=== PATIENT | female | born 1955 | race Caucasian/White ===

== ENCOUNTER 2022-11-20 14:25 | Emergency (ER) | payer MEDICARE, OTHER ==
[~2022-11-20] VITALS: Ht 167.6 cm; Wt 61.8 kg
[2022-11-20] MEDS ORDERED: IOHEXOL 350 MG/ML 100 ML VIAL ONE (15:27)
[2022-11-20] MEDS ORDERED: SODIUM CHLORIDE 0.9% 100 ML ONE (15:27)
[2022-11-20 15:30] LABS: BASOPHILS % (AUTO) 0.6 % (0.0-2.0); EOSINOPHILS % (AUTO) 1.6 % (1.0-6.0); HEMATOCRIT 40.1 % (36-46); HEMOGLOBIN 13.1 g/dL (12.0-16.0); LYMPHOCYTES # (AUTO) 1.5 K/uL (1.0-4.8); LYMPHOCYTES % (AUTO) 21.7 % (22.0-44.0); MEAN CORPUSCULAR HEMOGLOBIN 28.9 pg (26.0-34.0); MEAN CORPUSCULAR HGB CONC 32.6 G/dL (31.0-37.0); MEAN CORPUSCULAR VOLUME 89 fL (80-100); MONOCYTES # (AUTO) 0.5 K/uL (0.1-1.0); MONOCYTES % (AUTO) 6.8 % (2.0-9.0); NEUTROPHILS # (AUTO) 4.8 K/uL (1.8-7.7); NEUTROPHILS % (AUTO) 69.3 % (40.0-70.0); PLATELET COUNT (AUTO) 222 K/uL (150-450); RED BLOOD CELL COUNT(AUTO) 4.54 MIL/uL (4.00-5.20); RED CELL DISTRIBUTION WIDTH 14.6 % (11.5-14.5)
[2022-11-20 15:40] LABS: ANION GAP 7 mmol/L (8-16); CALCIUM, TOTAL 8.8 mg/dL (8.8-10.5); CARBON DIOXIDE 26 mmol/L (22-29); CHLORIDE 105 mmol/L (98-107); GLOMERULAR FILTR. RATE CALC > 60 mL/min (>60); GLUCOSE,RANDOM 89 mg/dL (70-110); POTASSIUM 3.7 mmol/L (3.5-5.1); SODIUM SERUM 138 mmol/L (136-145)
[2022-11-20 15:47] LABS: ALANINE AMINOTRANSFERASE 16 U/L (12-78); ALBUMIN 3.2 g/dL (3.4-5.0); ALKALINE PHOSPHATASE 121 U/L (46-116); ASPARTATE AMINOTRANSFERASE 22 U/L (15-37); BILIRUBIN,TOTAL 0.6 mg/dL (0.1-1.0); LIPASE 47 U/L (73-393); TOTAL PROTEIN, SERUM 6.7 g/dL (6.4-8.2)
[2022-11-20 17:12] LABS: APPEARANCE,URINE CLEAR (CLEAR); BILIRUBIN,URINE NEGATIVE (NEGATIVE); GLUCOSE, URINE (UA) NEGATIVE (NEGATIVE); KETONES,URINE NEGATIVE (NEGATIVE); LEUKOCYTE ESTERASE ,URINE MODERATE (NEGATIVE); NITRATE,URINE NEGATIVE (NEGATIVE); OCCULT BLOOD,URINE NEGATIVE (NEGATIVE); PH,URINE 6.5 (5.0-8.0); PROTEIN,URINE TRACE mg/dL (NEGATIVE); UROBILINOGEN,URINE <=1.0 mg/dL (<=1.0)
[2022-11-20 17:14] LABS: SPECIFIC GRAVITIY, URINE 1.015 (1.003-1.030)
[2022-11-20 17:21] LABS: BACTERIA,URINE Few /HPF (None Seen); RBC,URINE 0-2 /HPF (0-2); SQUAMOUS EPITHELIAL CELL,UR Moderate /LPF (None Seen)
[2022-11-20] MEDS ORDERED: NITROFURANTOIN MONOHYD/M-CRYST 100 MG CAPSULE [MACROBID] PO ONE (17:45)
[2022-11-20] MEDS ORDERED: NITR-75 PO (18:26)
[2022-11-20 19:30] VITALS: BP 124/77; PULSE 74; RESP 16; TEMP 98.3
== END 2022-11-20 19:49 | disposition home or self-care (01) ==
LOC: EMS 14:25
DX: N39.0 Urinary tract infection, site not specified (principal); R10.9 Unspecified abdominal pain; G89.29 Other chronic pain; M54.9 Dorsalgia, unspecified
CPT/HCPCS: 99285; 74177; 80053; 81001; 83690; 84484; 85025; 36415; 87086; 87186; 93005; Q9967; J7050

== ENCOUNTER 2023-01-16 12:15 | Inpatient (IN) | payer MEDICARE, OTHER ==
[~2023-01-16] VITALS: Ht 175.3 cm; Wt 63.6 kg
[~2023-01-16 12:15] MED LIST: NITR-75 PO
[2023-01-16] MEDS ORDERED: SODIUM CHLORIDE 0.9% 1,000 ML IV ONE ×2 (12:30→15:00)
[2023-01-16] MEDS ORDERED: 0.9% SODIUM CHLORIDE 10 ML SYRINGE IVP PRN (12:30)
[2023-01-16 13:12] LABS: COVID AG,FIA SOURCE NASOPHARYNGEAL
[2023-01-16 13:16] LABS: BASOPHILS % (AUTO) 0.7 % (0.0-2.0); EOSINOPHILS % (AUTO) 1.4 % (1.0-6.0); HEMOGLOBIN 13.3 g/dL (12.0-16.0); LYMPHOCYTES # (AUTO) 0.9 K/uL (1.0-4.8); LYMPHOCYTES % (AUTO) 13.7 % (22.0-44.0); MEAN CORPUSCULAR HEMOGLOBIN 29.5 pg (26.0-34.0); MEAN CORPUSCULAR HGB CONC 32.5 G/dL (31.0-37.0); MEAN CORPUSCULAR VOLUME 91 fL (80-100); MONOCYTES # (AUTO) 0.3 K/uL (0.1-1.0); MONOCYTES % (AUTO) 5.3 % (2.0-9.0); NEUTROPHILS # (AUTO) 5.1 K/uL (1.8-7.7); NEUTROPHILS % (AUTO) 78.9 % (40.0-70.0); PLATELET COUNT (AUTO) 293 K/uL (150-450); RED BLOOD CELL COUNT(AUTO) 4.52 MIL/uL (4.00-5.20); RED CELL DISTRIBUTION WIDTH 14.9 % (11.5-14.5); WHITE BLOOD COUNT (AUTO) 6.4 K/uL (4.5-11.0)
[2023-01-16 13:32] LABS: INR 1.7 (0.9-1.1); PROTHROMBIN TIME 17.1 SEC (9.4-11.6)
[2023-01-16 13:33] LABS: ANION GAP 8 mmol/L (8-16); B-TYPE NATRIURETIC PEPTIDE < 5 pg/mL (0-100); CALCIUM, TOTAL 8.8 mg/dL (8.8-10.5); CARBON DIOXIDE 27 mmol/L (22-29); CHLORIDE 104 mmol/L (98-107); CREATININE 0.75 mg/dL (0.60-1.30); GLOMERULAR FILTR. RATE CALC > 60 mL/min (>60); GLUCOSE,RANDOM 101 mg/dL (70-110); POTASSIUM 3.6 mmol/L (3.5-5.1); SODIUM SERUM 139 mmol/L (136-145); UREA NITROGEN, BLOOD 18 mg/dL (7-18)
[2023-01-16 13:34] LABS: LACTIC ACID 1.2 mmol/L (0.4-2.0)
[2023-01-16 13:35] LABS: TROPONIN I-HIGH SENSITIVITY 16 ng/L (<51)
[2023-01-16 13:37] LABS: SARS-COV2 (COVID) ANTIGEN,FIA Negative (Negative)
[2023-01-16 13:38] LABS: INFLUENZA TYPE A NEGATIVE FOR TYPE A (NEGATIVE); INFLUENZA TYPE B NEGATIVE FOR TYPE B (NEGATIVE)
[2023-01-16 13:56] LABS: ALANINE AMINOTRANSFERASE 12 U/L (12-78); ALBUMIN 3.7 g/dL (3.4-5.0); ALKALINE PHOSPHATASE 113 U/L (46-116); ASPARTATE AMINOTRANSFERASE 19 U/L (15-37); BILIRUBIN,TOTAL 0.5 mg/dL (0.1-1.0); CREATINE KINASE, TOTAL ONLY 95 U/L (26-192); PHOSPHORUS 3.9 mg/dL (2.5-4.9); TOTAL PROTEIN, SERUM 7.1 g/dL (6.4-8.2)
[2023-01-16] MEDS ORDERED: MAGNESIUM HYDROXIDE SUSPENSION 30 ML UDCUP PO PRN (15:00)
[2023-01-16] MEDS ORDERED: MORPHINE SULFATE 2 MG/ML SYRINGE IVP PRN (15:00)
[2023-01-16] MEDS ORDERED: ONDANSETRON HCL 4 MG/2 ML VIAL IVP PRN (15:00)
[2023-01-16] MEDS ORDERED: ACETAMINOPHEN 325 MG TABLET PO PRN (15:00)
[2023-01-16] MEDS ORDERED: BISACODYL 10 MG RECTAL RECTAL SUPPOSITORY PR PRN (15:00)
[2023-01-16] MEDS: HEPARIN SODIUM,PORCINE 5,000 UNITS/ML VIAL SQ SCH (18:00)
[2023-01-16] MEDS: DOCUSATE SODIUM 100 MG CAPSULE PO SCH (20:18)
[2023-01-17 01:01] LABS: APPEARANCE,URINE CLEAR (CLEAR); BILIRUBIN,URINE NEGATIVE (NEGATIVE); COLOR,URINE LIGHT YELLOW (YELLOW); GLUCOSE, URINE (UA) NEGATIVE (NEGATIVE); KETONES,URINE NEGATIVE (NEGATIVE); LEUKOCYTE ESTERASE ,URINE SMALL (NEGATIVE); NITRATE,URINE NEGATIVE (NEGATIVE); OCCULT BLOOD,URINE NEGATIVE (NEGATIVE); PH,URINE 6.5 (5.0-8.0); PROTEIN,URINE NEGATIVE (NEGATIVE); SPECIFIC GRAVITIY, URINE 1.016 (1.003-1.030); UROBILINOGEN,URINE <=1.0 mg/dL (<=1.0)
[2023-01-17 01:08] LABS: BACTERIA,URINE Few /HPF (None Seen); RBC,URINE 0-2 /HPF (0-2)
[2023-01-17 02:20] VITALS: BP 143/75; PULSE 75; RESP 20; TEMP 98.6
[2023-01-17] MEDS: HYDROCODONE/ACETAMINOPHEN 5-325 MG TABLET PO PRN ×3 (02:27→20:30)
[2023-01-17] MEDS: ZOLPIDEM TARTRATE 5 MG TABLET PO PRN ×2 (02:27→20:30)
[2023-01-17 05:30] VITALS: BP 135/77; PULSE 69; RESP 20; TEMP 97.7
[2023-01-17 06:48] LABS: BASOPHILS % (AUTO) 0.9 % (0.0-2.0); EOSINOPHILS % (AUTO) 2.5 % (1.0-6.0); HEMATOCRIT 37.8 % (36-46); HEMOGLOBIN 12.5 g/dL (12.0-16.0); LYMPHOCYTES # (AUTO) 1.9 K/uL (1.0-4.8); LYMPHOCYTES % (AUTO) 34.6 % (22.0-44.0); MEAN CORPUSCULAR HEMOGLOBIN 30.2 pg (26.0-34.0); MEAN CORPUSCULAR HGB CONC 33.2 G/dL (31.0-37.0); MEAN CORPUSCULAR VOLUME 91 fL (80-100); MONOCYTES # (AUTO) 0.4 K/uL (0.1-1.0); MONOCYTES % (AUTO) 7.9 % (2.0-9.0); NEUTROPHILS % (AUTO) 54.1 % (40.0-70.0); PLATELET COUNT (AUTO) 229 K/uL (150-450); RED BLOOD CELL COUNT(AUTO) 4.15 MIL/uL (4.00-5.20); RED CELL DISTRIBUTION WIDTH 14.5 % (11.5-14.5); WHITE BLOOD COUNT (AUTO) 5.5 K/uL (4.5-11.0)
[2023-01-17 07:08] LABS: ANION GAP 9 mmol/L (8-16); CALCIUM, TOTAL 8.3 mg/dL (8.8-10.5); CARBON DIOXIDE 24 mmol/L (22-29); CHLORIDE 105 mmol/L (98-107); CREATININE 0.47 mg/dL (0.60-1.30); GLOMERULAR FILTR. RATE CALC > 60 mL/min (>60); GLUCOSE,RANDOM 70 mg/dL (70-110); POTASSIUM 3.6 mmol/L (3.5-5.1); SODIUM SERUM 138 mmol/L (136-145); UREA NITROGEN, BLOOD 11 mg/dL (7-18)
[2023-01-17] MEDS: HEPARIN SODIUM,PORCINE 5,000 UNITS/ML VIAL SQ SCH ×3 (08:19→15:29)
[2023-01-17] MEDS: PANTOPRAZOLE SODIUM 40 MG DR TABLET PO SCH (08:21)
[2023-01-17] MEDS: DOCUSATE SODIUM 100 MG CAPSULE PO SCH ×2 (08:21→20:27)
[2023-01-17 08:42] VITALS: BP 139/71; PULSE 72; RESP 20; TEMP 98
[2023-01-17 12:50] VITALS: BP 148/74; PULSE 78; RESP 18; TEMP 98
[2023-01-17 16:17] VITALS: BP 141/70; PULSE 72; RESP 19; TEMP 98.4
[2023-01-17 20:45] VITALS: BP 129/71; PULSE 70; RESP 18; TEMP 98.1
[2023-01-18] MEDS: HEPARIN SODIUM,PORCINE 5,000 UNITS/ML VIAL SQ SCH ×2 (00:08→08:15)
[2023-01-18 00:22] VITALS: BP 131/74; PULSE 70; RESP 17; TEMP 97.9
[2023-01-18 04:49] VITALS: BP 137/77; PULSE 66; RESP 18; TEMP 98
[2023-01-18] MEDS ORDERED: LEVOTHYROXINE SODIUM 125 MCG TABLET PO SCH (06:30)
[2023-01-18 06:46] LABS: EOSINOPHILS % (AUTO) 2.8 % (1.0-6.0); HEMOGLOBIN 12.8 g/dL (12.0-16.0); LYMPHOCYTES % (AUTO) 41.3 % (22.0-44.0); MEAN CORPUSCULAR HEMOGLOBIN 30.4 pg (26.0-34.0); MEAN CORPUSCULAR HGB CONC 33.8 G/dL (31.0-37.0); MEAN CORPUSCULAR VOLUME 90 fL (80-100); MONOCYTES # (AUTO) 0.4 K/uL (0.1-1.0); MONOCYTES % (AUTO) 8.5 % (2.0-9.0); NEUTROPHILS # (AUTO) 2.2 K/uL (1.8-7.7); NEUTROPHILS % (AUTO) 46.4 % (40.0-70.0); PLATELET COUNT (AUTO) 252 K/uL (150-450); RED BLOOD CELL COUNT(AUTO) 4.22 MIL/uL (4.00-5.20); RED CELL DISTRIBUTION WIDTH 14.5 % (11.5-14.5); WHITE BLOOD COUNT (AUTO) 4.7 K/uL (4.5-11.0)
[2023-01-18 06:55] LABS: ANION GAP 8 mmol/L (8-16); CALCIUM, TOTAL 8.3 mg/dL (8.8-10.5); CARBON DIOXIDE 26 mmol/L (22-29); CHLORIDE 105 mmol/L (98-107); CREATININE 0.49 mg/dL (0.60-1.30); GLOMERULAR FILTR. RATE CALC > 60 mL/min (>60); GLUCOSE,RANDOM 88 mg/dL (70-110); POTASSIUM 3.6 mmol/L (3.5-5.1); SODIUM SERUM 139 mmol/L (136-145); UREA NITROGEN, BLOOD 12 mg/dL (7-18)
[2023-01-18 08:08] VITALS: BP 158/73; PULSE 70; RESP 19; TEMP 98.2
[2023-01-18] MEDS: DOCUSATE SODIUM 100 MG CAPSULE PO SCH (08:14)
[2023-01-18] MEDS: PANTOPRAZOLE SODIUM 40 MG DR TABLET PO SCH (08:16)
[2023-01-18] MEDS ORDERED: LEVO-72 PO (11:30)
[2023-01-18] MEDS ORDERED: LEVO125 PO (11:30)
[2023-01-18 12:28] VITALS: BP 157/77; PULSE 74; PULSE 91; RESP 19; TEMP 98.2
== END 2023-01-18 15:35 | disposition home or self-care (01) | DRG 74 ==
LOC: EMS 12:18 → 5S 23:00
PROVIDERS: ADMIT Internal Medicine; ATTEND Internal Medicine
DX: G90.9 Disorder of the autonomic nervous system, unspecified (principal); N39.0 Urinary tract infection, site not specified; E86.0 Dehydration; I95.1 Orthostatic hypotension; E78.5 Hyperlipidemia, unspecified; F41.9 Anxiety disorder, unspecified; E78.00 Pure hypercholesterolemia, unspecified; F17.210 Nicotine dependence, cigarettes, uncomplicated; F32.A Depression, unspecified; G89.29 Other chronic pain; M54.9 Dorsalgia, unspecified; Z20.822 Contact with and (suspected) exposure to COVID-19; K59.00 Constipation, unspecified; Z87.440 Personal history of urinary (tract) infections; Z88.0 Allergy status to penicillin; Z93.3 Colostomy status
CPT/HCPCS: 51701; 71045; 80048; 80053; 81001; 82550; 83605; 83735; 83880; 84100; 84145; 84484; 85025; 85610; 87040; 87086; 87186; 87804; 93005; 93880; 97163; 99291; J1644; J7030; 36415-L1; 36415-TC

== ENCOUNTER 2024-04-23 18:30 | Emergency (ER) | payer MEDICARE, OTHER ==
[~2024-04-23] VITALS: Ht 172.7 cm; Wt 75.5 kg
[~2024-04-23 18:30] MED LIST changes: +LEVO-72 PO; +LEVO125 PO; -NITR-75 PO
[2024-04-23 18:40] VITALS: TEMP 98.4
[2024-04-23] MEDS ORDERED: TRAZ-252 PO (18:45)
[2024-04-23] MEDS ORDERED: VENL-67 PO (18:45)
[2024-04-23] MEDS ORDERED: METO50 PO (18:45)
[2024-04-23] MEDS ORDERED: RIVA20TA PO (18:45)
[2024-04-23] MEDS ORDERED: EZET10TA57 PO (18:45)
[2024-04-23] MEDS ORDERED: ATOR20TA PO (18:45)
[2024-04-23] MEDS ORDERED: LOSA-382 PO (18:45)
[2024-04-23 19:27] LABS: BASOPHILS % (AUTO) 0.7 % (0.0-2.0); EOSINOPHILS % (AUTO) 0.7 % (1.0-6.0); HEMATOCRIT 43.3 % (36-46); HEMOGLOBIN 14.3 g/dL (12.0-16.0); LYMPHOCYTES # (AUTO) 1.8 K/uL (1.0-4.8); LYMPHOCYTES % (AUTO) 29.6 % (22.0-44.0); MEAN CORPUSCULAR HEMOGLOBIN 30.8 pg (26.0-34.0); MEAN CORPUSCULAR HGB CONC 33.1 G/dL (31.0-37.0); MEAN CORPUSCULAR VOLUME 93 fL (80-100); MONOCYTES # (AUTO) 0.4 K/uL (0.1-1.0); NEUTROPHILS # (AUTO) 3.7 K/uL (1.8-7.7); PLATELET COUNT (AUTO) 239 K/uL (150-450); RED BLOOD CELL COUNT(AUTO) 4.65 MIL/uL (4.00-5.20); RED CELL DISTRIBUTION WIDTH 14.2 % (11.5-14.5); WHITE BLOOD COUNT (AUTO) 5.9 K/uL (4.5-11.0)
[2024-04-23 19:55] LABS: CARBON DIOXIDE 27 mmol/L (22-29); CHLORIDE 102 mmol/L (98-107); POTASSIUM 4.2 mmol/L (3.5-5.1); SODIUM SERUM 136 mmol/L (136-145)
[2024-04-23 19:56] LABS: ANION GAP 7 mmol/L (8-16); CALCIUM, TOTAL 8.7 mg/dL (8.8-10.5); CREATININE 0.87 mg/dL (0.60-1.30); GLOMERULAR FILTR. RATE CALC > 60 mL/min (>60); GLUCOSE,RANDOM 89 mg/dL (70-110); UREA NITROGEN, BLOOD 14 mg/dL (7-18)
[2024-04-23 21:00] VITALS: BP 133/87; PULSE 63; RESP 16; O2SAT 98
[2024-04-23] MEDS: TraZODone HCL 50 MG TABLET PO ONE (21:05)
== END 2024-04-23 21:15 | disposition home or self-care (01) ==
LOC: EMS 18:30
DX: G47.9 Sleep disorder, unspecified (principal); R63.8 Other symptoms and signs concerning food and fluid intake; R53.1 Weakness; F41.9 Anxiety disorder, unspecified; F32.A Depression, unspecified; E78.00 Pure hypercholesterolemia, unspecified; F17.210 Nicotine dependence, cigarettes, uncomplicated; Z88.0 Allergy status to penicillin; Z79.899 Other long term (current) drug therapy
CPT/HCPCS: 80048; 85025; 99283

== ENCOUNTER 2024-06-01 16:21 | Emergency (ER) | payer MEDICARE ==
[~2024-06-01] VITALS: Ht 172.7 cm; Wt 59.7 kg
[~2024-06-01 16:21] MED LIST changes: +ATOR20TA PO; +EZET10TA57 PO; -LEVO-72 PO; +LOSA-382 PO; +METO50 PO; +RIVA20TA PO; +TRAZ-252 PO; +VENL-67 PO
[2024-06-01 16:31] VITALS: TEMP 97.8
[2024-06-01 17:49] LABS: APPEARANCE,URINE CLEAR (CLEAR); BILIRUBIN,URINE NEGATIVE (NEGATIVE); COLOR,URINE YELLOW (YELLOW); GLUCOSE, URINE (UA) NEGATIVE (NEGATIVE); KETONES,URINE NEGATIVE (NEGATIVE); LEUKOCYTE ESTERASE ,URINE SMALL (NEGATIVE); NITRATE,URINE NEGATIVE (NEGATIVE); OCCULT BLOOD,URINE NEGATIVE (NEGATIVE); PROTEIN,URINE TRACE mg/dL (NEGATIVE); SPECIFIC GRAVITIY, URINE 1.026 (1.003-1.030); UROBILINOGEN,URINE <=1.0 mg/dL (<=1.0)
[2024-06-01 18:22] LABS: BACTERIA,URINE Moderate /HPF (None Seen); RBC,URINE 0-2 /HPF (0-2); SQUAMOUS EPITHELIAL CELL,UR Moderate /LPF (None Seen)
[2024-06-01 19:04] LABS: BASOPHILS % (AUTO) 1.2 % (0.0-2.0); EOSINOPHILS % (AUTO) 0.7 % (1.0-6.0); HEMATOCRIT 39.8 % (36-46); HEMOGLOBIN 13.6 g/dL (12.0-16.0); LYMPHOCYTES # (AUTO) 1.3 K/uL (1.0-4.8); LYMPHOCYTES % (AUTO) 22.2 % (22.0-44.0); MEAN CORPUSCULAR HEMOGLOBIN 31.8 pg (26.0-34.0); MEAN CORPUSCULAR HGB CONC 34.2 G/dL (31.0-37.0); MEAN CORPUSCULAR VOLUME 93 fL (80-100); MONOCYTES # (AUTO) 0.4 K/uL (0.1-1.0); MONOCYTES % (AUTO) 6.8 % (2.0-9.0); NEUTROPHILS # (AUTO) 4.2 K/uL (1.8-7.7); NEUTROPHILS % (AUTO) 69.1 % (40.0-70.0); PLATELET COUNT (AUTO) 257 K/uL (150-450); RED BLOOD CELL COUNT(AUTO) 4.27 MIL/uL (4.00-5.20); RED CELL DISTRIBUTION WIDTH 14.1 % (11.5-14.5)
[2024-06-01 19:21] LABS: ANION GAP 8 mmol/L (8-16); CALCIUM, TOTAL 8.3 mg/dL (8.8-10.5); CARBON DIOXIDE 27 mmol/L (22-29); CHLORIDE 101 mmol/L (98-107); CREATININE 0.85 mg/dL (0.60-1.30); GLOMERULAR FILTR. RATE CALC > 60 mL/min (>60); GLUCOSE,RANDOM 114 mg/dL (70-110); POTASSIUM 3.5 mmol/L (3.5-5.1); SODIUM SERUM 136 mmol/L (136-145); UREA NITROGEN, BLOOD 14 mg/dL (7-18)
[2024-06-01 19:26] LABS: ALANINE AMINOTRANSFERASE 17 U/L (12-78); ALBUMIN 3.2 g/dL (3.4-5.0); ALKALINE PHOSPHATASE 70 U/L (46-116); ASPARTATE AMINOTRANSFERASE 24 U/L (15-37); BILIRUBIN,TOTAL 0.6 mg/dL (0.1-1.0); TOTAL PROTEIN, SERUM 6.1 g/dL (6.4-8.2)
[2024-06-01] MEDS ORDERED: LEVO100 PO (19:57)
[2024-06-01 20:00] VITALS: BP 125/70; PULSE 67; RESP 15; O2SAT 98
[2024-06-01] MEDS: CEPHALEXIN MONOHYDRATE 500 MG CAPSULE PO ONE (20:02)
[2024-06-01] MEDS ORDERED: PHEN-846 PO (20:18)
[2024-06-01] MEDS ORDERED: CEPH-558 PO (20:18)
== END 2024-06-01 22:00 | disposition home or self-care (01) ==
LOC: EMS 16:21
DX: N39.0 Urinary tract infection, site not specified (principal); F41.9 Anxiety disorder, unspecified; F32.A Depression, unspecified; E78.00 Pure hypercholesterolemia, unspecified; G89.29 Other chronic pain; F17.210 Nicotine dependence, cigarettes, uncomplicated; Z79.899 Other long term (current) drug therapy; Z88.0 Allergy status to penicillin
CPT/HCPCS: 80048; 80076; 81001; 85025; 87086; 99283

== ENCOUNTER 2024-07-07 14:03 | Inpatient (IN) | payer MEDICARE ==
[~2024-07-07] VITALS: Ht 165.1 cm; Wt 61.5 kg
[2024-07-07 12:30] VITALS: BP 115/66; PULSE 56; RESP 19; TEMP 98; O2SAT 98
[~2024-07-07 14:03] MED LIST changes: -ATOR20TA PO; +CEPH-558 PO; +LEVO100 PO; -LEVO125 PO; -METO50 PO; +PHEN-846 PO; -TRAZ-252 PO
[2024-07-07] MEDS: SODIUM CHLORIDE 0.9% 1,000 ML IV ONE ×2 (14:24→16:08)
[2024-07-07 14:54] LABS: BASOPHILS % (AUTO) 0.9 % (0.0-2.0); EOSINOPHILS % (AUTO) 2.3 % (1.0-6.0); HEMATOCRIT 35.2 % (36-46); HEMOGLOBIN 11.5 g/dL (12.0-16.0); LYMPHOCYTES # (AUTO) 0.9 K/uL (1.0-4.8); LYMPHOCYTES % (AUTO) 16.2 % (22.0-44.0); MEAN CORPUSCULAR HGB CONC 32.8 G/dL (31.0-37.0); MEAN CORPUSCULAR VOLUME 95 fL (80-100); MONOCYTES # (AUTO) 0.4 K/uL (0.1-1.0); MONOCYTES % (AUTO) 6.5 % (2.0-9.0); NEUTROPHILS # (AUTO) 4.2 K/uL (1.8-7.7); NEUTROPHILS % (AUTO) 74.1 % (40.0-70.0); PLATELET COUNT (AUTO) 209 K/uL (150-450); RED BLOOD CELL COUNT(AUTO) 3.72 MIL/uL (4.00-5.20); RED CELL DISTRIBUTION WIDTH 14.3 % (11.5-14.5); WHITE BLOOD COUNT (AUTO) 5.7 K/uL (4.5-11.0)
[2024-07-07 15:00] LABS: ANION GAP 7 mmol/L (8-16); CARBON DIOXIDE 28 mmol/L (22-29); CHLORIDE 107 mmol/L (98-107); CREATININE 0.79 mg/dL (0.60-1.30); GLOMERULAR FILTR. RATE CALC > 60 mL/min (>60); GLUCOSE,RANDOM 86 mg/dL (70-110); POTASSIUM 3.7 mmol/L (3.5-5.1); SODIUM SERUM 142 mmol/L (136-145); UREA NITROGEN, BLOOD 13 mg/dL (7-18)
[2024-07-07 15:08] LABS: LACTIC ACID 1.8 mmol/L (0.4-2.0)
[2024-07-07 15:10] LABS: ALANINE AMINOTRANSFERASE 12 U/L (12-78); ALBUMIN 2.6 g/dL (3.4-5.0); ALKALINE PHOSPHATASE 51 U/L (46-116); ASPARTATE AMINOTRANSFERASE 21 U/L (15-37); BILIRUBIN,TOTAL 0.5 mg/dL (0.1-1.0); CREATINE KINASE, TOTAL ONLY 234 U/L (26-192); PHOSPHORUS 4.1 mg/dL (2.5-4.9); TOTAL PROTEIN, SERUM 5.4 g/dL (6.4-8.2); TROPONIN I-HIGH SENSITIVITY 19 ng/L (<51)
[2024-07-07 15:13] LABS: B-TYPE NATRIURETIC PEPTIDE 17 pg/mL (0-100)
[2024-07-07] MEDS ORDERED: MAGNESIUM HYDROXIDE SUSPENSION 30 ML UDCUP PO PRN (15:30)
[2024-07-07] MEDS ORDERED: ACETAMINOPHEN 325 MG TABLET PO PRN (15:30)
[2024-07-07 15:48] LABS: APPEARANCE,URINE TURBID (CLEAR); BILIRUBIN,URINE NEGATIVE (NEGATIVE); COLOR,URINE YELLOW (YELLOW); GLUCOSE, URINE (UA) NEGATIVE (NEGATIVE); KETONES,URINE NEGATIVE (NEGATIVE); LEUKOCYTE ESTERASE ,URINE LARGE (NEGATIVE); NITRATE,URINE NEGATIVE (NEGATIVE); OCCULT BLOOD,URINE SMALL (NEGATIVE); PH,URINE 6.5 (5.0-8.0); PROTEIN,URINE 30-70 mg/dL (NEGATIVE); SPECIFIC GRAVITIY, URINE 1.013 (1.003-1.030); UROBILINOGEN,URINE <=1.0 mg/dL (<=1.0)
[2024-07-07 16:05] LABS: BACTERIA,URINE Moderate /HPF (None Seen); SQUAMOUS EPITHELIAL CELL,UR Moderate /LPF (None Seen); WBC,URINE 26-50 /HPF (0-5)
[2024-07-07] MEDS: HEPARIN SODIUM,PORCINE 5,000 UNITS/ML VIAL SQ SCH (16:11)
[2024-07-07] MEDS: LEVOFLOXACIN 750 MG/D5% WATER 150 ML IV ONE (17:31)
[2024-07-07] MEDS: DOCUSATE SODIUM 100 MG CAPSULE PO SCH (20:39)
[2024-07-08 05:19] VITALS: BP 134/76; PULSE 57; RESP 19; TEMP 97.9; O2SAT 98
[2024-07-08 08:55] VITALS: BP 130/64; PULSE 57; RESP 19; TEMP 98; O2SAT 97
[2024-07-08] MEDS: FAMOTIDINE 20 MG TABLET PO SCH (09:46)
[2024-07-08 11:12] VITALS: BP 110/60; PULSE 65; RESP 15; TEMP 98; O2SAT 98
[2024-07-08] MEDS: CIPROFLOXACIN HCL 250 MG TABLET PO SCH (14:36)
[2024-07-08] MEDS: LEVOTHYROXINE SODIUM 100 MCG VIAL IVP ONE (14:39)
[2024-07-08 15:12] VITALS: BP 117/62; PULSE 62; RESP 17; TEMP 98.1; O2SAT 97
[2024-07-08 21:36] VITALS: BP 135/73; PULSE 70; RESP 17; TEMP 98.1; O2SAT 96
[2024-07-09 00:20] VITALS: BP 138/75; PULSE 79; RESP 18; TEMP 98.1; O2SAT 97
[2024-07-09] MEDS: MELATONIN 3 MG TABLET PO PRN (02:04)
[2024-07-09 05:17] VITALS: BP 135/71; PULSE 75; RESP 18; TEMP 98.8; O2SAT 97
[2024-07-09] MEDS: LEVOTHYROXINE SODIUM 150 MCG TABLET PO SCH (06:46)
[2024-07-09 07:08] LABS: BASOPHILS % (AUTO) 0.8 % (0.0-2.0); EOSINOPHILS % (AUTO) 1.5 % (1.0-6.0); HEMOGLOBIN 12.9 g/dL (12.0-16.0); LYMPHOCYTES # (AUTO) 1.8 K/uL (1.0-4.8); LYMPHOCYTES % (AUTO) 29.6 % (22.0-44.0); MEAN CORPUSCULAR HEMOGLOBIN 31.5 pg (26.0-34.0); MEAN CORPUSCULAR VOLUME 93 fL (80-100); MONOCYTES # (AUTO) 0.5 K/uL (0.1-1.0); NEUTROPHILS # (AUTO) 3.7 K/uL (1.8-7.7); NEUTROPHILS % (AUTO) 60.1 % (40.0-70.0); PLATELET COUNT (AUTO) 209 K/uL (150-450); RED CELL DISTRIBUTION WIDTH 13.5 % (11.5-14.5); WHITE BLOOD COUNT (AUTO) 6.2 K/uL (4.5-11.0)
[2024-07-09 07:25] LABS: ANION GAP 6 mmol/L (8-16); CALCIUM, TOTAL 8.2 mg/dL (8.8-10.5); CARBON DIOXIDE 28 mmol/L (22-29); CHLORIDE 106 mmol/L (98-107); CREATININE 0.89 mg/dL (0.60-1.30); GLOMERULAR FILTR. RATE CALC > 60 mL/min (>60); GLUCOSE,RANDOM 81 mg/dL (70-110); POTASSIUM 3.8 mmol/L (3.5-5.1); SODIUM SERUM 140 mmol/L (136-145); UREA NITROGEN, BLOOD 9 mg/dL (7-18)
[2024-07-09 07:57] VITALS: BP 138/66; PULSE 81; RESP 18; TEMP 97.8; O2SAT 98
[2024-07-09 12:37] VITALS: BP 133/83; PULSE 65; RESP 18; TEMP 98.1; O2SAT 100
[2024-07-09 16:38] VITALS: BP 117/58; PULSE 64; RESP 18; TEMP 98.9; O2SAT 98
[2024-07-09 18:50] VITALS: BP 116/67; PULSE 60; RESP 18; TEMP 98; O2SAT 98
[2024-07-10 04:00] VITALS: BP 125/75; PULSE 75; RESP 18; TEMP 98.5; O2SAT 98
[2024-07-10 08:18] VITALS: BP 133/79; PULSE 68; RESP 18; TEMP 98.2; O2SAT 96
[2024-07-10] MEDS ORDERED: LEVO150 PO (09:13)
[2024-07-10 15:17] VITALS: BP 119/59; PULSE 75; RESP 18; TEMP 98.2; O2SAT 95
== END 2024-07-10 19:50 | disposition home or self-care (01) | DRG 644 ==
LOC: EMS 14:03 → EDH 15:17 → 5S 07-08 00:14 → 6S 07-09 19:48
PROVIDERS: ADMIT Internal Medicine; ATTEND Internal Medicine
DX: E03.9 Hypothyroidism, unspecified (principal); M62.82 Rhabdomyolysis; N39.0 Urinary tract infection, site not specified; J44.9 Chronic obstructive pulmonary disease, unspecified; D64.9 Anemia, unspecified; F29 Unspecified psychosis not due to a substance or known physiological condition; R00.1 Bradycardia, unspecified; R53.81 Other malaise; G89.29 Other chronic pain; F41.9 Anxiety disorder, unspecified; F32.A Depression, unspecified; Z87.891 Personal history of nicotine dependence; Z88.0 Allergy status to penicillin; Z93.3 Colostomy status
CPT/HCPCS: 71045; 80048; 80076; 81001; 82550; 83605; 83735; 83880; 84100; 84443; 84484; 85025; 85730; 87040; 87086; 93005; 93306; 97116; 97162; 97530; 99285; G0378; J1644; J1956; J3490; J7030; 36415-L1; 36415-TC

== ENCOUNTER 2024-09-21 12:36 | Emergency (ER) | payer MEDICARE ==
[~2024-09-21] VITALS: Ht 167.6 cm; Wt 65.9 kg
[~2024-09-21 12:36] MED LIST changes: -CEPH-558 PO; -LEVO100 PO; +LEVO150 PO; -LOSA-382 PO; -PHEN-846 PO
[2024-09-21 12:53] VITALS: TEMP 98.7
[2024-09-21] MEDS ORDERED: TRAZ-252 PO (13:29)
[2024-09-21] MEDS ORDERED: LEVO100 PO (13:29)
[2024-09-21] MEDS ORDERED: ATOR20TA65 PO (13:29)
[2024-09-21] MEDS ORDERED: LOSA-382 PO (13:29)
[2024-09-21] MEDS: IBUPROFEN 600 MG TABLET PO ONE (13:53)
[2024-09-21 14:10] LABS: BASOPHILS % (AUTO) 0.8 % (0.0-2.0); EOSINOPHILS % (AUTO) 0.2 % (1.0-6.0); HEMATOCRIT 44.1 % (36-46); HEMOGLOBIN 14.9 g/dL (12.0-16.0); LYMPHOCYTES # (AUTO) 1.4 K/uL (1.0-4.8); LYMPHOCYTES % (AUTO) 18.3 % (22.0-44.0); MEAN CORPUSCULAR HEMOGLOBIN 30.6 pg (26.0-34.0); MEAN CORPUSCULAR HGB CONC 33.9 G/dL (31.0-37.0); MEAN CORPUSCULAR VOLUME 90 fL (80-100); MONOCYTES # (AUTO) 0.6 K/uL (0.1-1.0); MONOCYTES % (AUTO) 7.1 % (2.0-9.0); NEUTROPHILS # (AUTO) 5.7 K/uL (1.8-7.7); NEUTROPHILS % (AUTO) 73.6 % (40.0-70.0); PLATELET COUNT (AUTO) 240 K/uL (150-450); RED BLOOD CELL COUNT(AUTO) 4.89 MIL/uL (4.00-5.20); RED CELL DISTRIBUTION WIDTH 14.5 % (11.5-14.5); WHITE BLOOD COUNT (AUTO) 7.8 K/uL (4.5-11.0)
[2024-09-21 14:14] LABS: CALCIUM, TOTAL 9.5 mg/dL (8.8-10.5); CREATININE 0.92 mg/dL (0.60-1.30); POTASSIUM 3.7 mmol/L (3.5-5.1)
[2024-09-21 22:28] VITALS: BP 146/78; PULSE 60; RESP 16; O2SAT 100
== END 2024-09-21 22:43 | disposition home or self-care (01) ==
LOC: EMS 12:38
DX: R53.1 Weakness (principal); E78.00 Pure hypercholesterolemia, unspecified; F32.A Depression, unspecified; F41.9 Anxiety disorder, unspecified; F17.210 Nicotine dependence, cigarettes, uncomplicated; Z88.0 Allergy status to penicillin; Z79.899 Other long term (current) drug therapy; W01.0XXA Fall on same level from slipping, tripping and stumbling without subsequent striking against object, initial encounter; Y93.01 Activity, walking, marching and hiking; Y92.89 Other specified places as the place of occurrence of the external cause; Y99.8 Other external cause status
CPT/HCPCS: 80048; 85025; 99285